=== PATIENT | female | born 1955 | race Caucasian/White ===

== ENCOUNTER 2024-01-09 09:43 | Day surgery (SDC) | payer MEDICARE ==
[~2024-01-09 09:43] MED LIST: Metoclopramide 10 MG/2 ML SDV IV PRN; Sodium Chloride 0.9% 1,000 ML IV SCH
[2024-01-09] MEDS: Sodium Chloride 0.9% 500 ML IV ONE (10:40)
[2024-01-09] MEDS ORDERED: Glycopyrrolate 0.2 MG/ML 2 ML SDV ONE (12:45)
[2024-01-09] MEDS ORDERED: Lidocaine 1% 30 ML SDV ONE (12:45)
== END 2024-01-09 14:15 | disposition home or self-care (01) ==
LOC: LB.SDS 09:43
PROVIDERS: ATTEND Surgery
DX: Z12.11 Encounter for screening for malignant neoplasm of colon (principal); I10 Essential (primary) hypertension; Z87.891 Personal history of nicotine dependence; Z85.038 Personal history of other malignant neoplasm of large intestine
CPT/HCPCS: 88305; J2704; J3490; J7040